=== PATIENT | female | born 1975 | race African-American/Black ===

== ENCOUNTER 2025-07-19 15:14 | Outpatient (AMB) | payer OTHER, SELFPAY ==
--- NOTE | 2025-07-19 15:16 | MHC.PC.OV ---
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 Allergies lemon Allergy (Verified 07/19/25 15:21) Swelling Seasonal Allergies Allergy (Verified 07/19/25 15:21) Runny Nose Medication List - Last Reconciled 07/19/25 by Carloz Dexter MD carvedilol 25 mg PO BID sacubitril-valsartan 49-51 mg (Entresto) 1 tab PO BID Tobacco use date assessed: 07/19/25 Dental Screening Dental Screen Date: 07/19/25 Did you have a dental visit in the last 12 months?: No Did you have a dental problem in the last 6 months where you did not have access to dental care?: No Was dental information given to patient?: Yes HPI HOSE TENDER // PE Request HPI Details New Patient? ?? Prior PCP:? Gwendolyn Levy Last office visit/CPE:? > 1 yr Acute issue(s):? Recent Meds: Carvedilol, hydrochlorothiazide, nifedipine, Entresto, colchicine Was hospitailed for Heart Failure in Nov 24 2024 At [facility]. ?? PMHx:? Hypertensive cardiomyopathy, heart failure with reduced ejection fraction (EF 30-35%, improved to 55%), hypertension, hyperlipidemia, diabetes type 2, acute kidney injury on CKD 3A Nephrology at [facility]. History of pericardial effusion. Varicose veins with edema, obesity. SurgHx:?None FHx:?Mom: HTN. Dad: Dementia. SocHx: Nonsmoker, EtOH Rare. 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 Current occupational exposures/hazards: No Cognitive needs: No Hearing needs: No Vision needs: No Questionnaire Thrive Questionnaire Date Thrive assessed: 07/19/25 I am a: Patient What is your living situation today?: I have a steady place to live Within the past 12 months, did the food you bought not last and you didn't have the money to get more?: Never true Within the past 12 months, did you worry whether your food would run out before you got money to buy more?: Never true Do you have trouble paying for medicines?: No Do you have trouble getting transportation to medical appointments?: No Do you have trouble paying your heating and electricity bill?: No Do you have trouble taking care of your child, family member or friend?: Yes (Grandmother) Do you have trouble with day-to-day activities such as bathing, preparing meals, shopping, managing finances, etc.?: No Are you currently unemployed and looking for a job?: No Are you interested in more education?: Yes Please select the resources that you would like help with: Paying for medicine Currently or been in a relationship where the following occur: No concerns reported THRIVE Score: 0 AUDIT C Alcohol Use Questionnaire (AUDIT-C) 1. How often do you have a drink containing alcohol?: Monthly or less 2. How many drinks containing alcohol do you have on a typical day when you are drinking?: 1 or 2 3. How often do you have six or more drinks on one occasion?: Never Total Score: 1 Review of Systems Const Denies chills, Denies fatigue, Denies fever(s), Denies headache(s) and Denies weakness ENT Denies dizziness and Denies headache(s) Card Denies chest pain, Denies lightheadedness, Denies dyspnea and Denies other (Palpitations) Resp Denies cough, Denies dyspnea, Denies wheezing and Denies other ( shortness of breath) Musc Denies numbness and Denies tingling Neuro Denies dizziness, Denies headache(s), Denies numbness, Denies tingling, Denies paresthesias and Denies weakness Psych Denies anxiety and Denies depression Endo Denies fatigue Aller/Immun Denies wheezing Physical exam (Primary Care) Vital Signs: Last Vital Signs Temp 98.7 F 07/19/25 15:29 Pulse 91 07/19/25 15:29 Resp 15 07/19/25 15:29 BP 118/80 07/19/25 15:29 Pulse Ox 98 07/19/25 15:29 Oxygen Delivery Method Room Air 07/19/25 15:29 BMI result Body Mass Index 41.9 Tobacco/Smoking Status: Tobacco use Status Tobacco use date assessed 07/19/25 07/19/25 15:33 Patient Tobacco Use Status Never used Tobacco 07/19/25 15:33 e-Cigarette/Vaping Use Never Used 07/19/25 15:33 Thrive Assessment: Date of Thrive Assessment Date Thrive assessed 07/19/25 07/19/25 15:33 Currently or been in a relationship where the following occur: No concerns reported Const General: no acute distress and well developed Nutritional Appearance: well nourished and obese morbidly obese Orientation/consciousness: patient oriented x3 HENMT Head: Yes normocephalic and Yes atraumatic Eyes General: appearance normal, both eyes and all related structures Pupils: Equal, round and reactive pupils present EOM: EOMs intact bilaterally Resp Effort & Inspection: normal respiratory effort Auscultation: clear to auscultation bilaterally Cardio Rate: regular rate Rhythm: regular rhythm Heart sounds: S1 normal heart sound present, S2 normal heart sound present, no gallops, no murmurs and no rubs Neuro General: patient oriented x3 and gait normal Cranial nerves: Yes Equal, round and reactive pupils present Psych Affect: normal affect Coding Level of Care Code New Pt Level 4 (43247) Diagnoses Hypertensive cardiomyopathy I11.9; I43 Hypertension I10 Hyperlipidemia E78.5 Heart failure with reduced ejection fraction I50.20 Diabetes E11.9 CKD (chronic kidney disease) N18.9 Laboratory exam ordered as part of routine general medical examination Z00.00 Assessment & Plan Assessment & Plan (1) Hypertensive cardiomyopathy: Code(s): I11.9 - Hypertensive heart disease without heart failure; I43 - Cardiomyopathy in diseases classified elsewhere Category: Medical Plan: 49-year-old female who was hospitalized and diagnosed with hypertensive cardiomyopathy in November 2024. Had reduced ejection fraction to 30% and this improved to 55%. Now on Entresto and carvedilol. Notes from Cardiology show she was also on nifedipine. Patient is uncertain if she is still taking this. Requesting medication list from patient and also her pharmacy. No change her medications today (2) Hypertension: Code(s): I10 - Essential (primary) hypertension Category: Medical Plan: Blood pressure today is well controlled. Goal is less than 130/80 Continue current medication (3) Hyperlipidemia: Code(s): E78.5 - Hyperlipidemia, unspecified Category: Medical Plan: Check lipids Unclear if she is on a statin (4) Heart failure with reduced ejection fraction: Code(s): I50.20 - Unspecified systolic (congestive) heart failure Category: Medical Plan: As above history of reduced ejection fraction She is on Entresto and carvedilol. Unclear what her other medications are at this time and I am requesting med lists. She is followed by [facility] Currently stable (5) Diabetes: Code(s): E11.9 - Type 2 diabetes mellitus without complications Category: Medical Plan: History of diabetes. She is not certain what other medications she is on or if she is on a medication for diabetes at this time. Will check A1c Will follow-up with patient (6) CKD (chronic kidney disease): Code(s): N18.9 - Chronic kidney disease, unspecified Category: Medical Plan: Diagnosed with CKD 3A History of ZARA in November during hospitalization Will recheck renal function Followed by Nephrology at [facility] Has upcoming appointment and request notes (7) Laboratory exam ordered as part of routine general medical examination: Code(s): Z00.00 - Encounter for general adult medical examination without abnormal findings Category: Medical Plan: Check labs Orders: Orders B Type Natriuretic Peptide Today I11.9 - Hypertensive heart disease without heart failure, I43 - Cardiomyopathy in diseases classified elsewhere, I50.9 - Heart failure, unspecified Comprehensive [place]. Panel Fast Today I11.9 - Hypertensive heart disease without heart failure, I43 - Cardiomyopathy in diseases classified elsewhere, Z00.00 - Encounter for general adult medical examination without abnormal findings Microalbumin, Random (w Creat) Today I10 - Essential (primary) hypertension, I11.9 - Hypertensive heart disease without heart failure, I43 - Cardiomyopathy in diseases classified elsewhere UA CC w/rflx Micro + Cult Today N18.9 - Chronic kidney disease, unspecified, Z00.00 - Encounter for general adult medical examination without abnormal findings Lipid Panel Today I11.9 - Hypertensive heart disease without heart failure, I43 - Cardiomyopathy in diseases classified elsewhere, Z00.00 - Encounter for general adult medical examination without abnormal findings TSH reflex Free T4 Today I11.9 - Hypertensive heart disease without heart failure, I43 - Cardiomyopathy in diseases classified elsewhere, Z00.00 - Encounter for general adult medical examination without abnormal findings Complete Blood Count Auto Diff Today I50.20 - Unspecified systolic (congestive) heart failure, Z00.00 - Encounter for general adult medical examination without abnormal findings Hemoglobin A1c Today I50.20 - Unspecified systolic (congestive) heart failure, R73.01 - Impaired fasting glucose
[2025-07-19 15:29] VITALS: BP 118/80; PULSE 91; RESP 15; TEMP 37.1; O2SAT 98; BMI 41.9
--- OUTSIDE RECORDS SUMMARY | 2025-07-19 17:36 | XMS_ITS | Clinical Summary ---
Author Organization [facility] Address [address] [address] Phone Care Team Providers Care Personal Banking Representative Name Role Phone Carloz Dexter MD Primary Care Provider Allergies Active Allergy Reactions Criticality Noted Date Comments Lemon Oil Anaphylaxis High 11/18/2024 Medications carvedilol (COREG) 25 MG tablet Take 25 mg by mouth in the morning and 25 mg in the evening. 02/15/2025 Active Colchicine 0.6 MG capsule Take 0.6 mg by mouth in the morning. 01/21/2025 Active hydroCHLOROthia zide 25 MG tablet Take 25 mg by mouth in the morning. 02/18/2025 Active sacubitril-vals dewey (Entresto) 49-51 MG per tablet Take 1 tablet by mouth in the morning and 1 tablet in the evening. 02/17/2025 Active NIFEdipine XL (PROCARDIA XL) 60 MG 24 hr tablet Take 1 tablet (60 mg total) by mouth 1 (one) time each day 90 tablet 3 02/21/2025 Active Active Problems Problem Noted Date Diagnosed Date Stage 3b chronic kidney disease 02/20/2025 Localized edema 02/20/2025 Heart failure 01/04/2025 Hypertensive urgency 01/04/2025 Snoring 01/04/2025 Acute systolic heart failure 12/29/2024 Pericardial effusion 12/29/2024 Cardiomyopathy due to hypertension 11/25/2024 Severe obesity 11/19/2024 Hypertensive nephrosclerosis 12/08/2022 Hypertension 09/09/2022 Diabetes mellitus, not otherwise specified 07/05 Mixed hypercholesterolemia and hypertriglyceride jakub 07/05/2022 Resolved Problems Problem Noted Date Diagnosed Date Resolved Date Stage 3a chronic kidney disease 12/08/2022 02/20/2025 Varicose veins of lower limb co-occurrent with edema 08/08/2016 02/20/2025 Encounters Date Type Department Care Team Description 05/23/2025 Orders Only [facility] [address] [address] Storm Lui MD Stage 3b chronic kidney disease (HCC); Hypertension; Localized edema; Pericardial effusion; Mixed hypercholesterolemia and hypertriglyceridemia; Hypertensive urgency; Hypertensive nephrosclerosis; Heart failure, not otherwise specified (HCC); Cardiomyopathy due to hypertension; Acute systolic heart failure (HCC); Diabetes mellitus, not otherwise specified (HCC) from Last 3 Months Immunizations Immunization Administration Dates Next Due Influenza (IM) Preservative Free 08/16/2016 Pfizer SARS-COV-2 01/14/2021,12/24/2020 Family History Medical History Relation Comments Hypertension Mother Relation Status Comments Father Alive Mother Alive Social History Tobacco Use Types Packs/Day Years Used Date Smoking Tobacco: Never Smokeless Tobacco: Never Tobacco Cessation:Counseling Given: Not Answered Alcohol Use Standard Drinks/Week Comments Yes 0 (1 standard drink = 0.6 oz pur e alcohol) very rarely Comments Unknown Sex and Gender Information Value Date Recorded Sex Assigned at Not on file Legal Sex Female 10:00 AM EDT Gender Identity Not on file Sexual Orientation Not on file Last Filed Vital Signs Vital Sign Reading Time Taken Comments Blood Pressure 140/94 02/21/2025 11:30 AM EDT Pulse 72 02/21/2025 11:30 AM EDT Temperature - - Respiratory Rate - - Oxygen Saturation 98% 02/21/2025 11:30 AM EDT Inhaled Oxygen Concentration - - Weight 93.5 kg (206 lb 3.2 oz) 02/21/2025 11:30 AM EDT Height - - Body Mass Index - - Plan of Treatment Upcoming Encounters Date Type Department Care Team (Late st Contact Info) Description 08/17/2025 10:00 AM EDT Office Visit [facility] [address] [phone] Storm Lui MD [address] [address] Health Maintenance Due Date Last Done Comments Breast Cancer Screening 1975 Hepatitis B Vaccine (1 of 3 - 19+ 3-dose series) 11/09 Pneumococcal Vaccine: 50+ Years (1 of 2 - PCV) 993 Colorectal Cancer Screening: Annual FOBT 2023 Colorectal Cancer Screening: Colonoscopy 2023 Colorectal Cancer Screening: Sigmoidoscopy 2023 Diabetes: Hemoglobin A1C 02/16/2025 11/18/2024 Diabetes: Ophthalmology Exam 02/16/2025 Diabetes: Pedal Pulse Checked 02/16/2025 Diabetes: Sensory Foot Exam 02/16/2025 Diabetes: Visual Foot Exam 02/16/2025 Influenza Vaccine (#1) 2025 08/16/2016 Insurance [facility] Care Teams Personal Banking Representative Relationship Specialty Start Date End Date Carloz Dexter MD [facility] [place] [address] PCP - General Family Medicine 02/16/25
--- OUTSIDE RECORDS SUMMARY | 2025-07-19 17:36 | XMS_ITS | Clinical Summary ---
Author Organization [facility] [employer] Address [address] [place] [address] Care Team Providers Care Drill Hand Name Role Phone Carloz Dexter MD Primary Care Provider Allergies Active Allergy Reactions Criticality Noted Date Comments Lemon Anaphylaxis High 11/18/2024 Medications NIFEdipine XL (PROCARDIA XL) 60 mg 24 hr tabletIndications :Essential hypertension Take 1 tablet (60 mg total) by mouth 1 (one) time each day before breakfast. Do not crush, chew, or split. 90 each 1 5 Active colchicine (MITIGARE) 0.6 mg capsule capsule TAKE 1 CAPSULE BY MOUTH EVERY DAY 30 capsule 2 5 Active carvediloL (COREG) 25 mg tablet TAKE 1 TABLET BY MOUTH EVERY 12 HOURS 180 tablet 3 5 Active sacubitriL-valsar keyes (Entresto) 49-51 mg per tablet TAKE 1 TABLET BY MOUTH TWICE A DAY 60 tablet 6 5 Active hydroCHLOROthiazi de (HYDRODIURIL) 25 mg tabletIndications :Essential hypertension TAKE 1 TABLET BY MOUTH 1 TIME EACH DAY. 90 tablet 2 5 Active Active Problems Problem Noted Date Diagnosed Date Acute kidney injury superimposed on CKD (CMS/HCC V24) 02/11/2025 Assessment & Plan (02/11/2025 4:05 PM EDT): As above. Snoring 01/04/2025 Assessment & Plan (01/04/2025 11:09 PM EST): Orders: Ambulatory referral to Sleep Medicine; Future Hypertensive urgency 01/04/2025 Assessment & Plan (01/04/2025 11:09 PM EST): Patient's blood pressure was initially elevated at 177/100 with further elevation to 212/102 on recheck on both arms; she is completely asymptomatic. We reviewed worrisome signs or symptoms for which she should seek urgent medical attention by activating EMS and she verbalizes understanding. Given her history of renal dysfunction, we will not make changes to her Entresto as above; we will instead add nifedipine 60 mg daily to her current regimen. Potential adverse effects including increased peripheral edema as well as when to return to care patient and she verbalizes understanding. Risk reduction with lifestyle modifications including improved diet and increased activity as tolerated were reviewed; she admits to poor dietary choices recently and knows she needs to make these changes and is motivated to do so. She does not have a blood pressure cuff at home but is considering purchasing 1; she will return for a blood pressure check with nursing in approximately 2 weeks at which time I have asked her to bring her blood pressure cuff with her if she does purchase one so that we can correlate readings to ensure it is functioning properly. Close interval follow-up will be planned with me in 4 weeks, sooner as indicated. We will update a metabolic panel today.I have reviewed this plan with Dr. Amor who is in agreement. Orders: Basic metabolic panel; Future Heart failure with recovered ejection fraction (HFrecEF) (CMS/HCC V24, CMS/HCC V28) 01/04/2025 Assessment & Plan (02/11/2025 4:05 PM EDT): As above. Assessment & Plan (01/04/2025 11:09 PM EST): Orders: Basic metabolic panel; Future Acute systolic (congestive) heart failure (CMS/HCC V24, CMS/HCC V28) 12/29/2024 Pericardial effusion 12/29/2024 Assessment & Plan (02/11/2025 4:05 PM EDT): Patient is not having any current symptoms to cause concern for return of pericardial effusion which was noted to be improved labeled as trivial on most recent echocardiogram completed 12/29/2024. She will continue colchicine for a total of 3 months post hospitalization, at which time it can be discontinued. Assessment & Plan (01/04/2025 11:09 PM EST): Patient is not having any current symptoms to cause concern for return of pericardial effusion which was noted to be improved labeled as trivial on most recent echocardiogram completed 12/29/2024. She will continue colchicine for a total of 3 months for hospitalization, at which time it can be discontinued. Hypertensive cardiomyopathy (CMS/HCC V24, CMS/HC C V28) 11/25/2024 Assessment & Plan (02/11/2025 4:05 PM EDT): Echocardiogram completed in early November 2024 revealed an EF of 30 to 35% in the setting of severely elevated blood pressures after the patient presented to the ER secondary to shortness of breath and orthopnea; blood pressure control was improved and she responded well to IV diuresis prior to being discharged from the hospital on guideline directed medical therapies including carvedilol and Entresto. Regadenoson nuclear stress test 11/23/2024 did not show any evidence of ischemia or infarct on myocardial perfusion imaging; cardiomyopathy was subsequently presumed nonischemic. Repeat echocardiogram on 12/29/2024 showed a marked improvement in both LV and RV function with an LVEF in the range of 55%. She presents today offering no symptoms to cause concern for overt heart failure and appears euvolemic on exam. Blood pressure is much improved with the addition of nifedipine and hydrochlorothiazide to guideline directed medical therapies that include carvedilol and mid range Entresto. She has a home blood pressure cuff that is reading accurately and she was encouraged to continue monitoring her blood pressures at home, notifying our office should systolic blood pressures remain above 130s over 80s consistently. As discussed further below, her renal function had worsened on her most recent labs 02/02/2025 and we are rechecking this today; we will continue to readdress the need for medication adjustments once results are reviewed. We discussed risk reduction through lifestyle modifications including healthy diet, routine exercise, and weight management as well . We reviewed heart failure management including low-sodium diet, symptom surveillance, daily weights, and medication compliance. I've asked the patient to call if they develop worsening symptoms of heart failure such as increased shortness of breath, new or worsening cough, increased swelling in the legs or ankles, or weight gain of more than 2 pounds in one day or 4 pounds in one week. Orders: Ambulatory referral to Nephrology; Future Assessment & Plan (01/04/2025 11:09 PM EST): Echocardiogram completed in early November 2024 revealed an EF of 30 to 35% in the setting of severely elevated blood pressures after the patient presented to the ER secondary to shortness of breath and orthopnea. Blood pressure control was improved and she responded well to IV diuresis prior to being discharged from the hospital on guideline directed medical therapies including carvedilol and Entresto. Regadenoson nuclear stress test 11/23/2024 did not show any evidence of ischemia or infarct on myocardial perfusion imaging. Repeat echocardiogram on 12/29/2024 showed a marked improvement in both LV and RV function with an LVEF in the range of 55%. She presents today offering no symptoms to cause concern for overt heart failure and appears euvolemic on exam. We will continue to focus on improved blood pressure control as discussed below as her blood pressure is quite elevated in office today; given the recovery of her EF and history of renal dysfunction with most recent creatinine on 11/25/2024 equal to 2.02, we will not make any changes to her GDMT for heart failure and will continue with carvedilol and Entresto though we did discuss the potential addition on and SGLT2 inhibitor and/or spironolactone in the future should this be warranted and her renal function improves adequately. We will update labs today. I've asked the patient to call if they develop worsening symptoms of heart failure such as increased shortness of breath, new or worsening cough, increased swelling in the legs or ankles, or weight gain of more than 2 pounds in one day or 4 pounds in one week. Orders: Basic metabolic panel; Future Class 2 severe obesity due t o excess calories with serious comorbidity and body mass index (BMI) of 37.0 to 37.9 in adult ([facility] V24, [facility] V28) 11/19/2024 Assessment & Plan (02/11/2025 4:05 PM EDT): The patient is obese; however, she has been working hard towards weight last with improved diet and increased activity as tolerated and is down 16 pounds since December 2024. She was congratulated on her achievements and continued efforts were encouraged. Approaches towards weight loss are discussed, including burning more calories than one takes in by portion control and regular exercise with an emphasis on duration rather than intensity. Orders: Lipid panel with reflex to direct LDL; Future Assessment & Plan (01/04/2025 11:09 PM EST): The patient is obese. Approaches towards weight loss are discussed, including burning more calories than one takes in by portion control and regular exercise with an emphasis on duration rather than intensity. Hypertensive nephrosclerosis 12/08/2022 CKD stage G3b/A2, GFR 30-44 and albumin creatinine ratio 30-299 mg/g ([facility] V24, [facility] V28) 07/05/2022 Diet-controlled diabetes tomás litus ([facility] V24, [facility] V28) 07/05/2022 Elevated triglycerides with high cholesterol Assessment & Plan (02/11/2025 4:05 PM EDT): Given the patient's history of diabetes, LDL goal is less than 70. Her most recent lipid panel was completed 11/18/2024 revealing an LDL of 110. She is not currently on antilipid medical therapy; she wishes to attempt lifestyle medical patient's with improved diet and increase activity to improve her lipid profile. Should LDL not be at goal on next lipid panel, would encourage the initiation of statin therapy for cardiovascular risk reduction. She will be due for an updated lipid panel sometime mid March 2025; the order for this has been entered today. Orders: Lipid panel with reflex to direct LDL; Future Assessment & Plan (01/04/2025 11:09 PM EST): Given the patient's history of diabetes, LDL goal is less than 70. Her most recent lipid panel was completed 11/18/2024 revealing an LDL of 110. She is not currently on antilipid medical therapy; she wishes to attempt lifestyle medical patient's with improved diet and increase activity to improve her lipid profile. Should LDL not be at goal on next lipid panel, would encourage the initiation of statin therapy for cardiovascular risk reduction. We will discuss updating a lipid panel at her short interval follow-up. Essential hypertension 08/08/2016 Assessment & Plan (02/11/2025 4:05 PM EDT): Blood pressure is favorable on current medical therapies; however, her renal function was elevated with mild hyponatremia after the recent addition of hydrochlorothiazide. These labs were completed 9 days ago at which time she was feeling quite fatigued and lightheaded; given that she is feeling much better now, we will update a metabolic panel today and readdress the need for medication changes once these are reviewed. A nephrology referral has also been placed for her today. For now, continue nifedipine, carvedilol, Entresto, and hydrochlorothiazide. Orders: Basic metabolic panel; Future Assessment & Plan (01/04/2025 11:09 PM EST): As above. Given her history of snoring we will evaluate for possible underlying untreated sleep apnea which may be contributing to secondary hypertension. Orders: Basic metabolic panel; Future Magnesium; Future NIFEdipine XL (PROCARDIA XL) 60 mg 24 hr tablet; Take 1 tablet (60 mg total) by mouth 1 (one) time each day before breakfast. Do not crush, chew, or split. Ambulatory referral to Sleep Medicine; Future Varicose veins of both legs with edema 6 Resolved Problems Problem Noted Date Diagnosed Date Resolved Date Hypertensive emergency 11/18/202411/25 Immunizations Name Administration Dates Next Due Influenza trivalent, 0.5mL, preservative free (Fluarix; FluLaval; Fluzone) ages 6mo and older (Afluria) 3 years and older 08/16/2016 Surgical History Surgery Date Site/Laterality Comments OTHER SURGICAL HISTORY PROCEDURE: DENIES PREVIOUS SURGERY Medical History Medical History Date Comments Hypertension Diabetes mellitus (CMS/HCC V24, CMS/HCC V28) Family History Medical History Relation Name Comments Diabetes Aunt 1 great aunt, mat ernal Dementia Father Hypertension Mother Relation Name Status Comments Aunt 1 Aunt 2 Brother Alive Father Alive Mother Alive Sister Alive x2 Social History Tobacco Use Types Packs/Day Years Used Date Smoking Tobacco: Never Smokeless Tobacco: Never Tobacco Cessation:Counseling Given: Not Answered Alcohol Use Standard Drinks/Week Comments Yes 0 (1 standard drink = 0.6 oz pur e alcohol) rarely Interpersonal Safety Answer Date Record ed Physical Abuse 11/18/2024 Verbal Abuse 11/18/2024 Comments Unknown Sex and Gender Information Value Date Recorded Sex Assigned at Not on file Legal Sex Female 3:24 PM EDT Gender Identity Not on file Sexual Orientation Not on file Obstetrics History Last Filed Vital Signs Vital Sign Reading Time Taken Comments Blood Pressure 124/70 02/11/2025 2:40 PM EDT Pulse 73 02/11/2025 2:40 PM EDT Temperature 36.9 C (98.4 F) 11/25/2024 3:17 PM EST Respiratory Rate 15 11/25/2024 3:17 PM EST Oxygen Saturation 96% 02/11/2025 2:40 PM EDT Inhaled Oxygen Concentration - - Weight 95.7 kg (211 lb) 02/11/2025 2:40 PM EDT Height 160 cm (5' 3 ) 02/11/2025 2:40 PM EDT Body Mass Index 37.38 02/11/2025 2:40 PM EDT Plan of Treatment Health Maintenance Due Date Last Done Comments Breast Cancer Screening 1974 Diabetes: Annual Foot Exam 1984 Diabetes: Annual Retina Eye Exam 1984 DTaP,Tdap,and Td Vaccines (1 - Tdap) 1993 Hepatitis B Vaccines (1 of 3 - 19+ 3-dose series) 1993 Pneumococcal Vaccine: 50+ Years (1 of 2 - PCV) 1993 Zoster Vaccines (1 of 2) 1993 Cervical Cancer Screening: Pap Smear 1995 COVID-19 Vaccine (3 - Pfizer risk series) 02/11/2021 01/14/2021, 12/24/2020 Colorectal Cancer Screening: Colonoscopy 06/27/2022 HIV Screening 06/27/2022 Hepatitis C Screening 06/27/2022 Social Influencers of Health Screening 06/27/2022 Diabetes: Annual Urine Albumin-Creatinine Ratio (uACR) 12/26/2023 07/05/2022 Depression Screening 11/10/2024 Diabetes: Blood Sugar Control Test (HGBA1C) 05/18/2025 11/18/2024 Influenza Vaccine (#1) 2025 08/16/2016 Diabetes: Annual GFR (Glomerular Filtration Rate) 02/18/2026 02/18/2025, 02/11/2025, 02/02/2025, Additional history exists Hypertension/CHF/CAD Annual BMP Blood Test 02/18/2026 02/18/2025, 02/11/2025, 02/02/2025, Additional history exists Cholesterol Screening (Lipid Panel) 11/18/2029 11/18/2024 HIB Vaccines Aged Out No longer eligi ble based on patient's age to complete this topic HPV Vaccines Aged Out No longer eligi ble based on patient's age to complete this topic Hepatitis A Vaccines Aged Out No long er eligible based on patient's age to complete this topic IPV Vaccines Aged Out No longer eligi ble based on patient's age to complete this topic MMR Vaccines Aged Out No longer eligi ble based on patient's age to complete this topic Meningococcal ACWY Vaccine Aged Out N o longer eligible based on patient's age to complete this topic Meningococcal B Vaccine Aged Out No l onger eligible based on patient's age to complete this topic RSV Immunization Patients Under 20 months Aged Out No longer eligible based on patient's age to complete this topic Varicella Vaccines Aged Out No longer eligible based on patient's age to complete this topic Procedures Procedure Name Priority Date/Time Associated Diagnosis Comments BASIC METABOLIC PANEL Routine 02/18/2025 9:04 AM EDT Essential hypertension Acute kidney injury superimposed on CKD (CMS/HCC V24) HEMOGLOBIN A1C Add-On 11/18/2024 2:32 PM EST LIPID PANEL WITH REFLEX TO DIRECT LDL Routine 11/18/2024 2:32 PM EST HM URINE ALBUMIN CREATININE RATIO Routine 07/05/2022 from Last 3 Months or Most Recently Relevant to Health Maintenance Results * (ABNORMAL) Basic metabolic panel (02/18/2025 9:04 AM EDT) Sodium 137 133 - 145 mmol/L LAB CHEMISTRY METHOD 02/18/2025 11:38 AM [facility] Potassium 4.2 3.5 - 5.5 mmol/L LAB CHEMISTRY METHOD 02/18/2025 11:38 AM [facility] Chloride 106 96 - 110 mmol/L LAB CHEMISTRY METHOD 02/18/2025 11:38 AM [facility] CO2 24 21 - 32 mmol/L LAB CHEMISTRY METHOD 02/18/2025 11:38 AM [facility] Anion Gap 7 3 - 11 LAB CHEMISTRY METHOD 02/18/2025 11:38 AM [facility] Glucose 124(H) 70 - 100 mg/dL LAB CHEMISTRY METHOD 02/18/2025 11:38 AM [facility] BUN 35(H) 5 - 25 mg/dL LAB CHEMISTRY METHOD 02/18/2025 11:38 AM [facility] Creatinine 2.17(H) 0.50 - 1.10 mg/dL LAB CHEMISTRY METHOD 02/18/2025 11:38 AM [facility] eGFR 27(L) >=60 mL/min/1. 73m2 LAB CHEMISTRY METHOD 02/18/2025 11:38 AM [facility] Comment:Calculation based on the Chronic Kidney Disease Epidemiology Collaboration (CKD-EPI) equation refit without adjustment for race. BUN/Creatinine Ratio 16.1 LAB CHEMISTRY METHOD 02/18/2025 11:38 AM [facility] Calcium 10.4 8.5 - 10.5 mg/dL LAB CHEMISTRY METHOD 02/18/2025 11:38 AM [facility] Blood Venous blood specimen / Unknown Venipuncture / Unknown 02/18/2025 9:04 AM EDT 02/18/2025 9:04 AM EDT Francisca Nieto NP LAB BLOOD ORDERABLES Final Result [facility] [address] [place] [address], [place] [phone] * (ABNORMAL) Lipid panel with reflex to direct LDL (11/18/2024 2:32 PM EST) Cholesterol 183 0 - 200 mg/dL LAB CHEMISTRY METHOD 11/18/2024 4:06 PM EST [facility] Triglycerides 159(H) 0 - 150 mg/dL LAB CHEMISTRY METHOD 11/18/2024 4:06 PM EST [facility] HDL 41 >=40 mg/dL LAB CHEMISTRY METHOD 11/18/2024 4:06 PM [facility] LDL Calculated 110(H) 0 - 100 mg/dL LAB CHEMISTRY METHOD 11/18/2024 4:06 PM EST [facility] VLDL Cholesterol Kleber 31.8 mg/dL LAB CHEMISTRY METHOD 11/18/2024 4:06 PM [facility] Non HDL Chol. (LDL+VLDL) 142 <145 mg/dL LAB CHEMISTRY METHOD 11/18/2024 4:06 PM EST [facility] Chol/HDL Ratio 4.5(H) 0.0 - 4.4 LAB CHEMISTRY METHOD 11/18/2024 4:06 PM [facility] Blood Venous blood specimen / Unknown Venipuncture / Unknown 11/18/2024 2:32 PM EST 11/18/2024 2:50 PM EST us Koki JAMES LAB BLOOD ORDERABLES Final Re sult [facility] [address] [place] [address], [place] [phone] * (ABNORMAL) Hemoglobin A1c (11/18/2024 2:32 PM EST) Hemoglobin A1C 6.5(H) <6.5 % LAB CHEMISTRY METHOD 11/18/2024 9:58 PM EST [facility] Mean Bld Glu Estim. 140 mg/dL LAB CHEMISTRY METHOD 11/18/2024 9:58 PM EST [facility] Blood Venous blood specimen / Unknown Venipuncture / Unknown 11/18/2024 2:32 PM EST 11/18/2024 2:50 PM EST us Koki JAMES LAB BLOOD ORDERABLES Final Re sult [facility] [address] [place] [address], [place] [phone] * Urine Albumin Creatinine Ratio (07/05/2022) Urine Albumin Creatinine Ratio abstracted Historical Provider HEALTH MAINTENANCE Final Result from Last 3 Months or Most Recently Relevant to Health Maintenance Insurance [facility] [employer] Advance Directives * Full Code - Default (Latest Code Status on File) Date Activated Date Inactivated Comments 11/18/2024 1:42 PM 11/25/2024 7:50 PM This is orde r is used when code status has not been discussed with the patient, or code status is otherwise unknown/unconfirmed To update the patient's code status, place a code status order. Do not modify or discontinue any currently active code status orders. Care Teams Drill Hand Relationship Specialty Start Date End Date Carloz Dexter MD [address] [place] [address] Dr Rikki MA PCP - General Family Medicine 12/23/24
== END 2025-07-19 16:06 | disposition home or self-care (01) ==
LOC: HO.HMCFM 15:14
PROVIDERS: PCP Family Medicine; Visit Provider Family Medicine
DX: Z00.00 Encounter for general adult medical examination without abnormal findings (principal); I11.9 Hypertensive heart disease without heart failure; I12.9 Hypertensive chronic kidney disease with stage 1 through stage 4 chronic kidney disease, or unspecified chronic kidney disease; I43 Cardiomyopathy in diseases classified elsewhere; I50.20 Unspecified systolic (congestive) heart failure; E11.69 Type 2 diabetes mellitus with other specified complication; N18.9 Chronic kidney disease, unspecified; E78.5 Hyperlipidemia, unspecified

== ENCOUNTER → 2025-07-19 15:14 | Outpatient (BNVA) | payer OTHER, SELFPAY | PROVIDERS: PCP Family Medicine; Visit Provider Family Medicine | DX: Z00.00 Encounter for general adult medical examination without abnormal findings (principal); E11.22 Type 2 diabetes mellitus with diabetic chronic kidney disease; I13.0 Hypertensive heart and chronic kidney disease with heart failure and stage 1 through stage 4 chronic kidney disease, or unspecified chronic kidney disease; I43 Cardiomyopathy in diseases classified elsewhere; E78.5 Hyperlipidemia, unspecified; I50.20 Unspecified systolic (congestive) heart failure; N18.9 Chronic kidney disease, unspecified | CPT/HCPCS: 99202; 99386 ==

== ENCOUNTER 2025-10-17 08:37 | Outpatient (REF) | payer OTHER, SELFPAY ==
[2025-10-17 11:40] LABS: MANUAL DIFF FLAG NO
[2025-10-17 11:49] LABS: Hematocrit 35.4 % (37.0-47.0); Hemoglobin 11.6 g/dl (12.0-16.0); Imm Gran Abs Auto 0.06 X10*3/uL (0.00-0.03); Imm Gran Pct Auto 0.8 % (0.0-0.4); Lymphocytes Absolute Auto 1.0 X10*3/uL (1.2-4.9); Mean Corpuscular HGB Conc 32.8 g/dl (31.0-35.0); Mean Corpuscular Hemoglobin 31.1 pg (27.0-33.0); Mean Corpuscular Volume 94.9 fL (80.0-98.0); NRBC Abs Auto 0.000 X10*3/uL (0.0-0.012); NRBC Pct Auto 0.0 /100WBC (0.0-0.2); Platelet Count 329 X10*3/uL (160-400); Red Blood Count 3.73 X10*6/uL (4.20-5.50); White Blood Count 7.9 X10*3/uL (4.8-10.8)
[2025-10-17 12:34] LABS: Alanine Aminotransferase 17 U/L (0-31); Albumin Level 4.3 g/dL (3.5-5.0); Alkaline Phosphatase 82 U/L (39-117); Anion Gap 12 (12-20); Aspartate Amino Transferase 20 U/L (5-31); Blood Urea Nitrogen 27 mg/dL (9-16); Calcium 10.5 mg/dL (8.4-10.2); Carbon Dioxide 22 mmol/L (22-29); Chloride 108 mmol/L (96-108); Cholesterol 205 mg/dL (<200); Estimated Glomerular Filt Rate 37; HDL Cholesterol 33 mg/dL (>40); Potassium 4.8 mmol/L (3.3-5.1); Sodium 137 mmol/L (135-145); Total Protein 7.5 g/dL (6.5-8.0); Triglycerides 222 mg/dL (<150)
== END 2025-10-17 08:38 | disposition home or self-care (01) ==
LOC: HO.WFDLDS 08:37
PROVIDERS: Visit Provider Family Medicine
DX: Z00.00 Encounter for general adult medical examination without abnormal findings (principal); I11.0 Hypertensive heart disease with heart failure; I50.20 Unspecified systolic (congestive) heart failure; I43 Cardiomyopathy in diseases classified elsewhere; R73.01 Impaired fasting glucose
CPT/HCPCS: 36415; 80053; 80061; 83036; 84443; 85025